=== PATIENT | female | born 1995 ===

== ENCOUNTER 2018-02-13 11:43 | Emergency (ER) | payer OTHER ==
--- NOTE | 2018-02-13 12:29 | ED PDOC ---
HPI: Headache Time Seen by Provider: 02/13/18 12:17 Chief Complaint (Nursing): Headache Chief Complaint (Provider): Headache History Per: Patient History/Exam Limitations: no limitations Onset/Duration Of Symptoms: Days (x3) Current Symptoms Are (Timing): Still Present Quality: Pressure, "Pain" Preceeding Symptoms: None Additional Complaint(s): 22 year old female reports headache radiating from her forehead around the rest of her head towards back of skull ongoing for 3 days. She describes headache as band-like pressure and pain associated with lightheadedness. Reports having similar symptoms in the past, took advil yesterday with some relief. Otherwise: (-) nausea, (-) vomiting, (-) URI symptoms, (-) fever, or (-) trauma. PMD: none Past Medical History Reviewed: Historical Data, Nursing Documentation, Vital Signs Vital Signs: Last Vital Signs Temp 97.2 F L 02/13/18 11:48 Pulse 61 02/13/18 11:48 Resp 17 02/13/18 11:48 BP 108/70 02/13/18 11:48 Pulse Ox 99 02/13/18 11:48 - Medical History PMH: No Chronic Diseases - Surgical History Surgical History: No Surg Hx - Family History Family History: States: Unknown Family Hx - Social History Current smoker - smoking cessation education provided: No Ex-Smoker (has not smoked in the last 12 months): No Alcohol: None Drugs: Denies - Home Medications Home Medications: Ambulatory Orders Medication Instructions Recorded Metoclopramide HCl [Reglan] 10 mg PO QID PRN #20 tablet 02/13/18 Naproxen 500 mg PO BID PRN #20 tablet 02/13/18 - Allergies Allergies/Adverse Reactions: Allergies Allergy/AdvReac Type Severity Reaction Status Date / Time No Known Allergies Allergy Verified 02/13/18 11:51 Review of Systems ROS Statement: Except As Marked, All Systems Reviewed And Found Negative Constitutional: Negative for: Fever ENT: Negative for: Nose Discharge, Nose Congestion, Throat Pain Respiratory: Negative for: Cough Gastrointestinal: Negative for: Nausea, Vomiting Neurological: Positive for: Headache (front to back) Physical Exam - Reviewed Nursing Documentation Reviewed: Yes Vital Signs Reviewed: Yes - Physical Exam Comments: GENERAL APPEARANCE: Patient is awake, alert, oriented x 3, in no acute distress. SKIN: Warm, dry; (-) cyanosis; (-) rash. HEAD: (-) scalp swelling or tenderness, (-) temporal artery tenderness. EYES: (-) conjunctival pallor, (-) scleral icterus. ENMT: (-) sinus tenderness; mucous membranes are moist. NECK: (-) tenderness, (-) stiffness, (-) meningismus, (-) lymphadenopathy. CHEST AND RESPIRATORY: (-) rales, (-) rhonchi, (-) wheezes; breath sounds equal bilaterally. HEART AND CARDIOVASCULAR: (-) irregularity; (-) murmur, (-) gallop. ABDOMEN AND GI: Soft; (-) tenderness. EXTREMITIES: (-) deformity. NEURO AND PSYCH: Mental status as above. 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 Strength symmetric. - ECG O2 Sat by Pulse Oximetry: 99 (RA) Pulse Ox Interpretation: Normal Medical Decision Making Medical Decision Making: Time: 1220 Initial Plan: * Reglan 10mg PO * Naporxen 500mg PO Time: 1227 --Urine: negative for . On re-evaluation, patient reports improvement of symptoms, denies fever or nausea. On exam, patient remains AAOx3, in no acute distress. On exam, neuro exam shows no focal findings. VSS, stable for discharge. Dx of tension headache d/w the patient. Based on history, exam and diagnostic results plan will be for outpatient follow up. Advised to follow up with the clinic in 1-2 days without fail. Advised to take medication as prescribed. Return to the emergency room at any time for any new or worsening symptoms. Patient states she fully agrees with and understands discharge instructions. States that she agrees with the plan and disposition. Verbalized and repeated discharge instructions and plan. I have given the patient opportunity to ask any additional questions. Scribe Attestation: Documented by Emily Starks, acting as a scribe for Josi Dunne PA-C. Provider Scribe Attestation: All medical record entries made by the Scribe were at my direction and personally dictated by me. I have reviewed the chart and agree that the record accurately reflects my personal performance of the history, physical exam, medical decision making, and the department course for this patient. I have also personally directed, reviewed, and agree with the discharge instructions and disposition. Disposition - Clinical Impression Clinical Impression: Headache - Patient ED Disposition Is Patient to be Admitted: No Counseled Patient/Family Regarding: Diagnosis, Need For Followup, Rx Given - Disposition Referrals: [facility] [Outside] Disposition: Routine/Home Disposition Time: 13:30 Condition: IMPROVED Additional Instructions: Thank you for letting us take care of you today. You were treated for tension headache. The emergency medical care you received today was directed at your acute symptoms. If you were prescribed any medication, please fill it and take as directed. It may take several days for your symptoms to resolve. Return to the Emergency Department if your symptoms worsen, do not improve, or if you have any other problems. Please call one of the physicians/clinics you have been referred to that are listed on the Patient Visit Information form that is included in your discharge packet. Bring any paperwork you were given at discharge with you along with any medications you are taking to your follow up visit. Our treatment cannot replace ongoing medical care by a primary care provider (PCP) outside of the emergency department. Thank you for allowing the [facility] team to be part of your care today. Prescriptions: Metoclopramide HCl [Reglan] 10 mg PO QID PRN #20 tablet PRN Reason: Headache Naproxen 500 mg PO BID PRN #20 tablet PRN Reason: Pain, Moderate (4-7) Instructions: Tension Headache Forms: [employer] (Lao), [facility] ED School/Work Excuse Print Language: K[place]IL[place] - PA / MIDDLEWARE SYSTEMS ARCHITECT / Resident Statement MD/DO has reviewed & agrees with the documentation as recorded.
[2018-02-13] MEDS ORDERED: Naproxen 500 MG TAB PO STA (12:31)
[2018-02-13] MEDS ORDERED: Naproxen 500 MG TAB PO ONE (12:43)
[2018-02-13 14:10] VITALS: BP 115/71; PULSE 72; RESP 15; TEMP 97.8
[2018-02-13 16:05] VITALS: O2SAT 99
== END 2018-02-13 14:10 | disposition home or self-care (01) ==
LOC: H.ER 11:43
DX: R51 Headache (principal)

== ENCOUNTER 2018-10-09 10:36 | Emergency (ER) | payer OTHER ==
[2018-10-09 10:45] VITALS: RESP 18; BMI 24.6
[2018-10-09] MEDS ORDERED: Sodium Chloride 0.9% 1,000 ML IV STA (11:05)
--- NOTE | 2018-10-09 11:08 | ED PDOC ---
HPI: General Adult Time Seen by Provider: 10/09/18 11:05 Chief Complaint (Nursing): Headache Chief Complaint (Provider): headache History Per: Patient (23 y/o female h/o Migraine here with left sided headache similar to h/o migraine. Attempted use of advil without relief. No fevers/chills etc.) Past Medical History Reviewed: Historical Data, Nursing Documentation, Vital Signs Vital Signs: Last Vital Signs Temp 98.4 F 10/09/18 10:44 Pulse 69 10/09/18 10:44 Resp 18 10/09/18 10:44 BP 100/63 10/09/18 10:44 Pulse Ox 100 10/09/18 10:44 - Medical History PMH: Migraine Denies: Chronic Kidney Disease - Family History Family History: States: Unknown Family Hx - Home Medications Home Medications: Ambulatory Orders Medication Instructions Recorded Metoclopramide HCl [Reglan] 10 mg PO QID PRN #20 tablet 02/13/18 Naproxen 500 mg PO BID PRN #20 tablet 02/13/18 - Allergies Allergies/Adverse Reactions: Allergies Allergy/AdvReac Type Severity Reaction Status Date / Time No Known Allergies Allergy Verified 02/13/18 11:51 Review of Systems ROS Statement: Except As Marked, All Systems Reviewed And Found Negative Neurological: Positive for: Headache Physical Exam - Reviewed Nursing Documentation Reviewed: Yes Vital Signs Reviewed: Yes - Physical Exam Appears: Positive for: Well, Non-toxic, No Acute Distress Head Exam: Positive for: ATRAUMATIC, NORMAL INSPECTION, NORMOCEPHALIC Skin: Positive for: Normal Color, Warm, DRY Eye Exam: Positive for: EOMI, Normal appearance, PERRL ENT: Positive for: Normal ENT Inspection Neck: Positive for: Normal, Painless ROM Cardiovascular/Chest: Positive for: Regular Rate, Rhythm Respiratory: Positive for: CNT, Normal Breath Sounds Gastrointestinal/Abdominal: Positive for: Normal Exam, Soft Back: Positive for: Normal Inspection Extremity: Positive for: Normal ROM Neurological/Psych: Positive for: Awake, Alert, Normal Tone - Laboratory Results Result Diagrams: 10/09/18 11:26 10/09/18 11:26 Urine POC: Negative - ECG O2 Sat by Pulse Oximetry: 100 - Progress ED Course And Treament: Pateint improved after reglan 10 mg iv and ns 1 liter 500 ml per hour Disposition - Clinical Impression Clinical Impression: Migraine - Patient ED Disposition Is Patient to be Admitted: No - Disposition Referrals: [facility] [place] [Outside] Disposition: Routine/Home Disposition Time: 12:53 Condition: FAIR Instructions: Migraine Headache (DC) Forms: [facility] ED School/Work Excuse Print Language: KENYAN
[2018-10-09 11:33] LABS: BASO % 0.3 % (0.0-2.0); EOS # 0.1 K/uL (0.0-0.7); EOS % 1.6 % (0.0-4.0); HEMOGLOBIN 13.1 g/dL (12.0-16.0); LYMPH # 1.2 K/uL (1.0-4.3); LYMPH % 30.3 % (20.0-40.0); MEAN CELL VOLUME 88.1 fl (81.0-99.0); MEAN CORPUSCULAR HEMOGLOBIN 29.2 pg (27.0-31.0); MEAN CORPUSCULAR HGB CONC 33.1 g/dL (33.0-37.0); MONO # 0.3 K/uL (0.0-0.8); MONO % 8.4 % (0.0-10.0); NEUT # 2.4 K/uL (1.8-7.0); NEUT % 59.4 % (50.0-75.0); NRBC % 0.1 % (0.0-0.0); RBC 4.49 Mil/uL (3.80-5.20); RED CELL DISTRIBUTION WIDTH 13.3 % (11.5-14.5)
[2018-10-09 11:46] LABS: BLOOD UREA NITROGEN 13 mg/dl (7-17); CALCIUM 9.2 mg/dL (8.4-10.2); GFR NON-AFRICAN AMERICAN > 60
[2018-10-09 13:24] VITALS: BP 119/71; PULSE 73; TEMP 98; O2SAT 99
== END 2018-10-09 13:18 | disposition home or self-care (01) ==
LOC: H.ER 10:36
DX: G43.909 Migraine, unspecified, not intractable, without status migrainosus (principal)
CPT/HCPCS: 80048; 81025; 85025; 96374; 99285; J2765; J7030